=== PATIENT | female | born 1960 | race Caucasian/White ===

== ENCOUNTER → 2023-11-09 | Outpatient (CLI) | payer BC | END | disposition home or self-care (01) | LOC: RAD 13:53 | PROVIDERS: ATTEND Physician Assistant Surgical | DX: M18.12 Unilateral primary osteoarthritis of first carpometacarpal joint, left hand (principal); M19.032 Primary osteoarthritis, left wrist; M25.532 Pain in left wrist; M25.832 Other specified joint disorders, left wrist | CPT/HCPCS: 73200 ==